=== PATIENT | male | born 1995 | race Caucasian/White ===

== ENCOUNTER → 2023-09-10 | Outpatient (CLI) | payer BC | LOC: RAD 08:45 | DX: M54.51 Vertebrogenic low back pain (principal) ==

== ENCOUNTER → 2024-05-31 | Outpatient (CLI) | payer BC ==
[~2024-05-31] MED LIST: ESCITALOPRAM20 MG PO; NORCO 325 MG-51 TA1 PO; WEGOVY2.4 MG/0.7 SQ; ZOFRAN ODT4 MG PO
[2024-05-31 15:32] LABS: BASO # 0.01 K/mm3 (0.02-0.10); EOS # 0.27 K/mm3 (0.04-0.40); EOS % 4.3 % (0.0-4.0); HEMATOCRIT 43.3 % (42.0-52.0); HEMOGLOBIN 14.9 g/dL (13.5-18.0); LYMPH# 2.15 K/mm3 (1.50-4.00); MEAN CELL VOLUME 88 fl (78-100); MEAN CORPUSCULAR HEMOGLOBIN 30 pg (27-31); MEAN CORPUSCULAR HGB CONC 34 g/dL (33-37); MEAN PLATELET VOLUME 8.8 fl (7.4-10.4); NEU # 3.29 K/mm3 (1.40-6.50); PLATELET COUNT 306 K/mm3 (130-400); RED CELL DISTRIBUTION WIDTH 12.9 % (11.5-14.5); WHITE BLOOD COUNT 6.2 K/mm3 (4.8-10.8)
[2024-05-31 15:44] LABS: ALBUMIN 4.4 g/dL (3.5-5.0)
[2024-05-31 15:47] LABS: TOTAL PROTEIN 7.4 g/dL (6.4-8.3)
[2024-05-31 15:48] LABS: TOTAL BILIRUBIN 0.4 mg/dL (0.2-1.2)
== END ==
LOC: LAB 15:21
PROVIDERS: Family Medicine
DX: R19.7 Diarrhea, unspecified (principal)

== ENCOUNTER 2024-06-01 20:49 | Emergency (ER) | payer BC ==
[~2024-06-01] VITALS: Ht 182.9 cm; Wt 101.8 kg
[2024-06-01] MEDS ORDERED: WEGOVY2.4 MG/0.7 SQ (20:55)
[2024-06-01 21:21] LABS: BASO # 0.02 K/mm3 (0.02-0.10); EOS # 0.31 K/mm3 (0.04-0.40); EOS % 3.8 % (0.0-4.0); HEMATOCRIT 43.9 % (42.0-52.0); HEMOGLOBIN 15.1 g/dL (13.5-18.0); LYMPH# 2.07 K/mm3 (1.50-4.00); MEAN CELL VOLUME 88 fl (78-100); MEAN CORPUSCULAR HEMOGLOBIN 30 pg (27-31); MEAN CORPUSCULAR HGB CONC 34 g/dL (33-37); MONO # 0.53 K/mm3 (0.20-0.80); NEU # 5.28 K/mm3 (1.40-6.50); PLATELET COUNT 313 K/mm3 (130-400); RED BLOOD COUNT 4.97 M/mm3 (4.20-5.60); RED CELL DISTRIBUTION WIDTH 12.9 % (11.5-14.5); WHITE BLOOD COUNT 8.2 K/mm3 (4.8-10.8)
[2024-06-01 21:26] LABS: ALBUMIN 4.6 g/dL (3.5-5.0)
[2024-06-01 21:28] LABS: CALCIUM 9.6 mg/dL (8.3-10.5)
[2024-06-01 21:29] LABS: TOTAL PROTEIN 7.6 g/dL (6.4-8.3)
[2024-06-01 21:31] LABS: TOTAL BILIRUBIN 0.4 mg/dL (0.2-1.2)
[2024-06-01] MEDS ORDERED: Iohexol 300 - 100 ML VIAL IV ONE (21:48)
[2024-06-01 22:11] LABS: PH-URINE 5.5 (5.0 - 8.0); URINE APPEARANCE SLIGHTLY CLOUDY (CLEAR); URINE BILIRUBIN 1+ (NEGATIVE); URINE BLOOD NEGATIVE (NEGATIVE); URINE COLOR YELLOW (YELLOW); URINE GLUCOSE NEGATIVE (NEGATIVE); URINE KETONE NEGATIVE (NEGATIVE); URINE LEUKOCYTE ESTERASE NEGATIVE (NEGATIVE); URINE NITRATE NEGATIVE (NEGATIVE); URINE PROTEIN(semi-quant) NEGATIVE (NEGATIVE)
[2024-06-01] MEDS ORDERED: Mag/Al Hydrox/Simeth Susp 30 ML CUP PO ONE (22:45)
[2024-06-01 23:48] VITALS: BP 117/75
== END 2024-06-01 23:51 | disposition home or self-care (01) ==
LOC: ED 20:49
PROVIDERS: Family Medicine
DX: R10.13 Epigastric pain (principal); E66.01 Morbid (severe) obesity due to excess calories; Q53.10 Unspecified undescended testicle, unilateral; N20.9 Urinary calculus, unspecified; Z68.30 Body mass index [BMI] 30.0-30.9, adult
CPT/HCPCS: J7120; Q9967

== ENCOUNTER 2024-06-03 19:00 | Emergency (ER) | payer BC ==
[~2024-06-03] VITALS: Ht 15.2 cm; Wt 125.9 kg
[~2024-06-03 19:00] MED LIST changes: -ESCITALOPRAM20 MG PO; -NORCO 325 MG-51 TA1 PO; -ZOFRAN ODT4 MG PO
[2024-06-03] MEDS ORDERED: ESCITALOPRAM20 MG PO (19:09)
[2024-06-03] MEDS ORDERED: NS 1,000 ML IV SCH ×2 (19:30→21:30)
[2024-06-03 19:49] LABS: BASO # 0.02 K/mm3 (0.02-0.10); EOS # 0.51 K/mm3 (0.04-0.40); EOS % 4.8 % (0.0-4.0); HEMOGLOBIN 17.4 g/dL (13.5-18.0); LYMPH# 1.53 K/mm3 (1.50-4.00); MEAN CELL VOLUME 88 fl (78-100); MEAN CORPUSCULAR HEMOGLOBIN 30 pg (27-31); MEAN CORPUSCULAR HGB CONC 34 g/dL (33-37); MEAN PLATELET VOLUME 8.7 fl (7.4-10.4); MONO # 0.59 K/mm3 (0.20-0.80); NEU # 7.94 K/mm3 (1.40-6.50); PLATELET COUNT 345 K/mm3 (130-400); RED BLOOD COUNT 5.79 M/mm3 (4.20-5.60); RED CELL DISTRIBUTION WIDTH 13.1 % (11.5-14.5); WHITE BLOOD COUNT 10.6 K/mm3 (4.8-10.8)
[2024-06-03 19:55] LABS: ALBUMIN 4.4 g/dL (3.5-5.0)
[2024-06-03 19:56] LABS: CALCIUM 9.4 mg/dL (8.3-10.5)
[2024-06-03 19:57] LABS: TOTAL PROTEIN 7.2 g/dL (6.4-8.3)
[2024-06-03 19:59] LABS: TOTAL BILIRUBIN 0.6 mg/dL (0.2-1.2)
[2024-06-03] MEDS ORDERED: ZOFRAN ODT4 MG PO (23:05)
[2024-06-03] MEDS ORDERED: NORCO 325 MG-51 TA1 PO (23:05)
[2024-06-03] MEDS ORDERED: Home HYDROcodone/Acetaminophen 5/325 MG #4 TABS/PACK PO ONE (23:15)
[2024-06-03] MEDS ORDERED: Home Ondansetron ODT 4 MG #2 ODT/PACK PO ONE (23:15)
[2024-06-03 23:27] VITALS: BP 107/53
== END 2024-06-03 23:28 | disposition home or self-care (01) ==
LOC: ED 19:00
PROVIDERS: Family Medicine
DX: R11.2 Nausea with vomiting, unspecified (principal); R19.7 Diarrhea, unspecified; R10.9 Unspecified abdominal pain
CPT/HCPCS: J7030